=== PATIENT | female | born 1955 | race Caucasian/White ===

== ENCOUNTER 2019-05-11 19:55 | Emergency (ER) | payer OTHER ==
[~2019-05-11] VITALS: Ht 167.6 cm; Wt 56.7 kg
[2019-05-11] MEDS ORDERED: NORCO 5-325 TA1 EAC1 PO (21:08)
[2019-05-11 21:16] VITALS: BP 137/76
== END 2019-05-11 21:16 | disposition home or self-care (01) ==
LOC: ER 19:55
DX: S60.052A Contusion of left little finger without damage to nail, initial encounter (principal); M25.571 Pain in right ankle and joints of right foot; F17.210 Nicotine dependence, cigarettes, uncomplicated; Z88.1 Allergy status to other antibiotic agents; V18.9XXA Unspecified pedal cyclist injured in noncollision transport accident in traffic accident, initial encounter; Y93.89 Activity, other specified; Y92.89 Other specified places as the place of occurrence of the external cause; Y99.8 Other external cause status

== ENCOUNTER 2020-06-28 13:52 | Emergency (ER) | payer OTHER ==
[~2020-06-28] VITALS: Ht 167.6 cm; Wt 62.6 kg
[~2020-06-28 13:52] MED LIST: NORCO 5-325 TA1 EAC1 PO
[2020-06-28] MEDS ORDERED: XANAX 0.25 MG0.25 MG PO (15:54)
[2020-06-28 15:56] VITALS: BP 130/70
== END 2020-06-28 15:57 | disposition home or self-care (01) ==
LOC: ER 13:52
DX: F41.9 Anxiety disorder, unspecified (principal); N64.4 Mastodynia; F17.210 Nicotine dependence, cigarettes, uncomplicated; Z88.1 Allergy status to other antibiotic agents